=== PATIENT | female | born 1990 | race American Indian/Alaskan Native ===

== ENCOUNTER 2017-09-12 15:10 | Emergency (ER) | payer MEDICAID ==
[2017-09-12 16:11] LABS: HCG Qualitative,Urine Negative (Negative)
[2017-09-12 16:18] LABS: Bilirubin,Urine NEG (Negative); Blood,Urine NEG (Negative); Color,Urine Yellow (Yellow); Mucus,Urine 1+ /HPF; Urobilinogen,Urine < 2.0 mg/dL (<2.0)
--- NOTE | 2017-09-12 18:12 | Emergency Department Report ---
Vomiting/Diarrhea - HPI Chief Complaint: Nausea/Vomiting/Diarrhea Stated Complaint: BLOODY STOOL, DIZZINESS AND LEG PAIN Time Seen by Provider: 09/12/17 17:11 Duration: 1 Day Severity: moderate Nausea/Vomiting Severity: Moderate Diarrhea Severity: Moderate Pain Location: Other (rectal pain and bilateral lower extremity cramping) Pain Severity: Moderate Symptoms: Yes Watery Diarrhea, Yes Bloody diarrhea, Yes Able to Tolerate Fluids , No Fever, No Recent Unusual Foods, No Recent Untreated Water, No Recent use of Antibiotics, No Family w/ Similar Symptoms, No Contacts w/ Similar Symptoms, No Rash, No Hematuria, No Recent URI Symptoms Other History: This is a 27-year-old -[place] female who presents with nausea, diarrhea, hematochezia for 1 day. Patient reports trying a home remedies she saw one [facility] for weight loss 2 days ago. Patient reports using douch mixed with peroxide and water applied to rectum for a laxative. Patient reports having multiple bowel movements with nausea and vomiting shortly after. Today she is having severe cramping to bilateral lower extremity and sharp pains to rectal area. Patient reports pain feel like contractions but she is not having pain to abdomen. Last menstrual period 08/20/2017. Patient reports taking Advil yesterday with no improvement of symptoms. Denies fever, abdominal pain, chest pain, shortness of breath, numbness or tingling, and edema. ED Review of Systems ROS: Stated complaint: BLOODY STOOL, DIZZINESS AND LEG PAIN Other details as noted in HPI Constitutional: denies: chills, fever Respiratory: denies: cough, shortness of breath, wheezing Cardiovascular: denies: chest pain, palpitations Gastrointestinal: nausea, diarrhea, hematochezia. denies: abdominal pain, vomiting Genitourinary: denies: urgency, dysuria, frequency, discharge Psychiatric: denies: anxiety, depression ED Past Medical Hx - Past Medical History Previous Medical History?: No - Surgical History Past Surgical History?: Yes Additional Surgical History: X4 - Social History Smoking Status: Never Smoker Substance Use Type: Alcohol - Medications Home Medications: Home Medications Medication Instructions Recorded Confirmed Last Taken Type Hydrocortisone [Anucort-HC SUPPOS] 25 mg RC BID #10 supp.rect 09/12/17 Unknown Rx Ibuprofen [Motrin 600 MG tab] 600 mg PO Q8H PRN #15 tablet 09/12/17 Unknown Rx Vomiting Diarrhea Exam - Exam General: Vital signs noted. No distress. Alert and acting appropriately. HEENT: Yes Moist Mucous Membranes, No Pharyngeal Erythema, No Pharyngeal Exudates, No Rhinorrhea, No Conjuctival Injection, No Frontal Tenderness, No Maxillary Tenderness Neck: No Adenopathy, No Rigidity Lungs: Yes Clear Lung Sounds, Yes Good Air Exchange, No Wheezes, No Stridor, No Cough, No Nasal Flaring, No Retractions, No Use of Accessory Muscles Heart exam: Regular: Yes, Murmur: No, Tachycardia: No Abdomen: Tenderness: No, Peritoneal Signs: No, Distention: No, Hyperactive Bowel sounds: No Skin exam: Rash: No, Edema: No, Normal turgor: Yes Neurologic: Alert and oriented, no deficits. Musculoskeletal: Unremarkable. Exam: Rectal: external and internal hemorrhoids, normal tone, heme negative ED Course Vital Signs 09/12/17 15:38 Temperature 99.2 F Pulse Rate 87 Respiratory 18 Rate Blood Pressure 138/75 O2 Sat by Pulse 97 Oximetry ED Medical Decision Making - Lab Data Result diagrams: 09/12/17 18:57 - Medical Decision Making This is a 27 y.o. female that presents with nausea, diarrhea, hematochezia for 1 day. Patient is stable and was examined by me. Vitals normal. Patient given Toradol 30 mg IM and Zofran ODT 4 mg by mouth once in ER. Obtained BMP, CBC, UA , & occult stool, urine hcg. HCG and urinalysis normal. Negative occult stool. All other labs pending. Physical findings of active hemorrhoids. Signed chart and Lauren Beaulieu will discharge patient. Critical care attestation.: If time is entered above; I have spent that time in minutes in the direct care of this critically ill patient, excluding procedure time. ED Disposition Clinical Impression: External bleeding hemorrhoids Disposition: -01 TO HOME OR SELFCARE Is pt being admited?: No Does the pt Need Aspirin: No Condition: Stable Instructions: Hemorrhoids (ED), Rectal Bleeding (ED) Prescriptions: Hydrocortisone [Anucort-HC SUPPOS] 25 mg RC BID #10 supp.rect Ibuprofen [Motrin 600 MG tab] 600 mg PO Q8H PRN #15 tablet PRN Reason: Pain Referrals: [facility] [Outside] - 3-5 Days [facility] [Outside] - 3-5 Days [facility] [Outside] - 3-5 Days
[2017-09-12] MEDS ORDERED: ZOFRAN ODT PO ONE (18:24)
[2017-09-12] MEDS ORDERED: TORADOL IM ONE (18:24)
[2017-09-12 19:05] LABS: Hematocrit 42.1 % (30.3-42.9); Mean Corpuscular HGB Conc 33 % (30-34); Mean Corpuscular Hemoglobin 29 pg (28-32); Mean Corpuscular Volume 88 fl (79-97); Platelet Count 239 K/mm3 (140-440); Red Blood Count 4.76 M/mm3 (3.65-5.03); Red Cell Distribution Width 13.3 % (13.2-15.2)
[2017-09-12 19:24] LABS: BUN/Creatinine Ratio 23; Blood Urea Nitrogen 9 mg/dL (7-17); Calcium 9.8 mg/dL (8.4-10.2); Hemolysis Index 9
[2017-09-12 21:24] VITALS: BP 128/72
== END 2017-09-12 21:22 | disposition home or self-care (01) ==
LOC: ED 15:10
DX: K62.5 Hemorrhage of anus and rectum (principal)
CPT/HCPCS: 36415; 80048; 81001; 81025; 82271; 85027; 96372; 99283; J1885; Q0162